=== PATIENT | female | born 1950 | race Caucasian/White ===

== ENCOUNTER 2016-09-30 15:11 | Emergency (ER) | payer MEDICARE, OTHER ==
[~2016-09-30 15:11] MED LIST: CYCLOBENZAPRINE5 MG PO; ECO81 PO; ENALAPRIL20 M1 PO; ESG PO; GLIPIZIDE5 MG PO; GLU5 PO; GLU500 PO; LIPI10 PO; LIPI20 PO; METFORMIN HCL1000 MG PO; NEU300 PO; OMEPRAZOLE D/R20 M1 PO; Q PAP PO; TERBINAFINE250 MG PO
[2016-09-30 18:27] VITALS: BP 114/70
== END 2016-09-30 18:27 | disposition home or self-care (01) ==
LOC: ED 15:11
DX: S16.1XXA Strain of muscle, fascia and tendon at neck level, initial encounter (principal); S20.211A Contusion of right front wall of thorax, initial encounter; S70.01XA Contusion of right hip, initial encounter; S80.02XA Contusion of left knee, initial encounter; I10 Essential (primary) hypertension; E11.9 Type 2 diabetes mellitus without complications; V54.5XXA Driver of pick-up truck or van injured in collision with heavy transport vehicle or bus in traffic accident, initial encounter; Y93.89 Activity, other specified; Y92.89 Other specified places as the place of occurrence of the external cause; Y99.8 Other external cause status
CPT/HCPCS: J1885

== ENCOUNTER 2017-06-16 13:41 | Emergency (ER) | payer MEDICARE, OTHER ==
[~2017-06-16] VITALS: Ht 160 cm; Wt 81.6 kg
[2017-06-16 14:04] VITALS: Ht 160 cm; Wt 81.6 kg
[2017-06-16 15:37] LABS: BASOPHIL % 0.5 % (0-2); PLATELET COUNT 166 x10^3mcL (130-400); RED CELL DISTRIBUTION WIDTH 14.2 % (11.5-14.5)
[2017-06-16 16:20] VITALS: BP 134/75
== END 2017-06-16 16:20 | disposition home or self-care (01) ==
LOC: ED 13:41
PROVIDERS: Emergency Medicine
DX: M19.072 Primary osteoarthritis, left ankle and foot (principal); I10 Essential (primary) hypertension; E11.9 Type 2 diabetes mellitus without complications; E78.00 Pure hypercholesterolemia, unspecified; F17.210 Nicotine dependence, cigarettes, uncomplicated; Z71.6 Tobacco abuse counseling
CPT/HCPCS: 36415; 99406; J1885

== ENCOUNTER 2018-01-13 05:36 | Emergency (ER) | payer MEDICARE, OTHER ==
[~2018-01-13] VITALS: Ht 160 cm; Wt 86.2 kg
[2018-01-13 05:40] VITALS: Ht 160 cm; Wt 86.2 kg
[2018-01-13 09:17] VITALS: BP 116/68
== END 2018-01-13 09:17 | disposition home or self-care (01) ==
LOC: ED 05:36
DX: S80.02XA Contusion of left knee, initial encounter (principal); S80.01XA Contusion of right knee, initial encounter; M54.2 Cervicalgia; M54.9 Dorsalgia, unspecified; I10 Essential (primary) hypertension; E11.9 Type 2 diabetes mellitus without complications; Z90.49 Acquired absence of other specified parts of digestive tract; Z79.84 Long term (current) use of oral hypoglycemic drugs; Z79.899 Other long term (current) drug therapy; W01.0XXA Fall on same level from slipping, tripping and stumbling without subsequent striking against object, initial encounter; Y93.89 Activity, other specified; Y92.59 Other trade areas as the place of occurrence of the external cause; Y99.8 Other external cause status
CPT/HCPCS: J1885; J2270; Q0162

== ENCOUNTER 2019-06-29 01:28 | Emergency (ER) | payer MEDICARE, OTHER ==
[~2019-06-29] VITALS: Ht 160 cm; Wt 83.0 kg
[2019-06-29 01:35] VITALS: Ht 160 cm; Wt 83.0 kg
[2019-06-29 05:41] VITALS: BP 103/46
== END 2019-06-29 05:40 | disposition home or self-care (01) ==
LOC: ED 01:28
DX: R51 Headache (principal); M54.32 Sciatica, left side; E11.65 Type 2 diabetes mellitus with hyperglycemia; M19.90 Unspecified osteoarthritis, unspecified site; E78.00 Pure hypercholesterolemia, unspecified; I10 Essential (primary) hypertension; E11.9 Type 2 diabetes mellitus without complications; R11.2 Nausea with vomiting, unspecified
CPT/HCPCS: 82962; J1200; J1885; J2765; J7030